=== PATIENT | female | born 1950 | race Caucasian/White ===

== ENCOUNTER 2017-06-15 10:16 | Observation (INO) | payer MEDICARE ==
[~2017-06-15] VITALS: Ht 165.1 cm; Wt 108.9 kg
[~2017-06-15 10:16] MED LIST: HCTZ25 MG PO; PEPCID AC20 MG PO; PLENDIL5 MG PO; PRILOSEC20 MG PO; PROZAC20 MG PO
[2017-06-15 11:40] LABS: BASOPHILS 0.3 % (0-2); EOSINOPHILS 1.7 % (0-7); HEMATOCRIT 42.3 % (36.0-48.0); HEMOGLOBIN 14.5 g/dL (12-16); IMMATURE GRANULOCYTES 0.2 % (0-5); LYMPHOCYTES 24.7 % (15-50); MCH 30.9 pg (26.0-34.0); MCHC 34.3 g/dL (31.0-37.0); MCV 90.2 fL (80.0-100.0); MEAN PLATELET VOLUME 9.1 fL (7.4-10.4); MONOCYTES 5.8 % (2-11); NEUTROPHILS 67.3 % (40-80); PLATELET COUNT 285 10x3/uL (130-400); RBC 4.69 10x6/uL (4.00-5.40); RDW 14.1 % (11.5-14.5); WBC 9.2 10x3/uL (4.8-10.8)
[2017-06-15 11:50] LABS: APTT 27.2 SECONDS (22.8-39.4)
[2017-06-15 11:55] LABS: ALBUMIN 3.1 g/dL (3.4-5.0); ALKALINE PHOSPHATASE 148 U/L (46-116); ALT (SGPT) 22 U/L (10-68); BILIRUBIN - TOTAL 0.38 mg/dL (0.2-1.3); CALC OSMOLALITY 271 mosm/kg (275-300); CALCIUM 8.9 mg/dL (8.5-10.1); CARBON DIOXIDE 32.9 mmol/L (21.0-32.0); CHLORIDE - SERUM 98 mmol/L (98-107); GLUCOSE 101 mg/dL (74-106); POTASSIUM - SERUM 3.1 mmol/L (3.5-5.1); PROTEIN - SERUM 7.2 g/dL (6.4-8.2); SODIUM 137 mmol/L (136-145); UREA NITROGEN 7 mg/dL (7-18); eGFR NON AFRICAN AMERICAN 58 mL/min (90-120)
[2017-06-15 12:06] LABS: CREATINE KINASE 120 UL (21-215); TROPONIN-I < 0.017 ng/mL (0.000-0.060)
[2017-06-15] MEDS ORDERED: COMBIVENT RESPIM4 GM INH (19:03)
[2017-06-15] MEDS ORDERED: FUROSEMIDE20 MG PO (19:03)
[2017-06-15] MEDS ORDERED: HYZAAR 100-25 T1 TAB PO (19:03)
[2017-06-15] MEDS ORDERED: HYZAAR 100-25 T1 TAB (19:05)
[2017-06-15] MEDS ORDERED: FUROSEMIDE20 MG (19:06)
[2017-06-15] MEDS ORDERED: COMBIVENT RESPIM4 GM (19:06)
--- NOTE | 2017-06-16 01:31 | NUR ---
HOOKED UP TO TELEMETRY. SINUS RHYTHM 77/min.
--- NOTE | 2017-06-16 01:40 | NUR ---
PT TO ROOM 1214 FROM ER VIA WHEELCHAIR.ASSESSMENT PER FLOW SHEET.SLIGHT WEAKNESS NOTED TO RIGHT UPPER AND LOWER BODY.PT IS ALAERT AND ORIENTED X4.FAMILY IS AT BEDSIDE CALL LIGHT USE INSTRUCTED AND IN REACH.
[2017-06-16 01:53] VITALS: BP 167/77; BMI 40.0
--- NOTE | 2017-06-16 04:45 | NUR ---
IV SITED TO LEFT HAND X1 STICK USING ASEPTIC TECH,20G.
[2017-06-16 05:24] LABS: BASOPHILS 0.3 % (0-2); EOSINOPHILS 2.8 % (0-7); HEMATOCRIT 41.7 % (36.0-48.0); HEMOGLOBIN 13.9 g/dL (12-16); IMMATURE GRANULOCYTES 0.2 % (0-5); LYMPHOCYTES 25.8 % (15-50); MCH 30.2 pg (26.0-34.0); MCHC 33.3 g/dL (31.0-37.0); MCV 90.7 fL (80.0-100.0); MEAN PLATELET VOLUME 9.4 fL (7.4-10.4); MONOCYTES 7.5 % (2-11); NEUTROPHILS 63.4 % (40-80); PLATELET COUNT 296 10x3/uL (130-400); RDW 13.9 % (11.5-14.5); WBC 8.7 10x3/uL (4.8-10.8)
--- NOTE | 2017-06-16 05:38 | NUR ---
REMAINS WITHOUT CHANGE.STATES HAND FEELS BETTER.REMAINS NPO FOR SWALLOW STUDY.WAITING ON IV PUMP TO START IVF.CONT PLAN OF CARE
[2017-06-16 05:53] LABS: CALC OSMOLALITY 273 mosm/kg (275-300); CALCIUM 8.7 mg/dL (8.5-10.1); CARBON DIOXIDE 31.4 mmol/L (21.0-32.0); CHLORIDE - SERUM 99 mmol/L (98-107); CHOL - HDL RATIO 4.6 ratio (2.3-4.1); CHOLESTEROL, TOTAL 171 mg/dL (0-200); GLUCOSE 92 mg/dL (74-106); HDL CHOLESTEROL 37 mg/dL (32-96); LDL CHOLESTEROL 113 mg/dL (0-100); LDL-HDL RATIO 3.1 ratio (1.5-3.5); SODIUM 138 mmol/L (136-145); TRIGLYCERIDE 108 mg/dL (30-200); UREA NITROGEN 7 mg/dL (7-18); eGFR NON AFRICAN AMERICAN 58 mL/min (90-120)
[2017-06-16 05:54] LABS: TROPONIN-I < 0.017 ng/mL (0.000-0.060)
[2017-06-16 07:03] LABS: ERYTHROCYTE SEDIMENTATION RATE 29 mm/hr (0-30)
--- NOTE | 2017-06-16 07:30 | NUR ---
AWAKE AND ALERT. ORIENTED X3. NO C/O THIS AM. NO DEFICITS NOTED. NEURO CHECKS WNL. LUNGS ARE CLEAR BILATERALLY, NO COUGH NOTED. SKIN IS INTACT WITHOUT REDNESS. IV TO LEFT HAND IS PATENT WITHOUT REDNESS. DENIES NEEDS. FAMILY AT BEDSIDE.
[2017-06-16 08:26] VITALS: BP 136/73
--- NOTE | 2017-06-16 10:30 | NUR ---
PASSED SPEECH EVAL. GIVEN REGULAR DIET. ATE ABOUT HALF OF SANDWICH.
[2017-06-16 10:31] VITALS: Ht 165.1 cm; Wt 108.9 kg
--- NOTE | 2017-06-16 12:45 | NUR ---
LUNCH TRAY SERVED IN ROOM. ATE OVER HALF OF TRAY. DENIES NEEDS. FAMILY AT BEDSIDE.
[2017-06-16] MEDS ORDERED: ASPIRIN325 MG PO (13:45)
--- NOTE | 2017-06-16 15:00 | NUR ---
DISCHARGE ORDERS RECEIVED. IV TO LEFT HAND D/C WITH CATHETER INTACT. WAITING ON FAMILY TO DISCHARGE HOME.
--- NOTE | 2017-06-16 16:21 | NUR ---
DISCHARGED TO HOME AMBULATORY WITH FAMILY. DISCHARGE INSTRUCTIONS GIVEN BOTH VERBALLY AND WRITTEN. ALL QUESTIONS ANSWERED. PATIENT AND FAMILY VERBALIZED UNDERSTANDING OF SAME. NO NEW PRESCRIPTIONS NEEDED.
--- NOTE | 2017-06-18 13:34 | EC ---
PATIENT:GUSTAVO RIVERA DATE OF SERVICE: 06/15/17 SEX: F MEDICAL RECORD: [id number] DATE OF : 46 LOCATION:[facility] AGE OF PATIENT: 66 ADMISSION DATE: 06/15/17 REFERRING PHYSICIAN: INTERPRETING PHYSICIAN: GARY VARGAS MD ECHOCARDIOGRAM REPORT ECHO CHARGES 4 ECHO COMPLETE CLINICAL DIAGNOSIS: CVA HX OF HTN ECHOCARDIOGRAPHIC MEASUREMENTS (adult normal given) AC root (d.<3.7cm) 3.8 cm LV Septum d (<1.2 cm> 1.1 cm Valve Excursion 2.1 cm LV Septum (systole) 1.2 cm Left Atria (s.<4.0cm> 3.0 cm LVPW d(<1.2cm) 1.3 cm RV (d.<2.3cm) 3.5 cm LVPW (sytole) 1.5 cm LV diastole(<5.6CM) 4.2 cm MV E-F(>70mm/sec) cm LV systole 3.1 cm LVOT Diameter 2.0 cm MV exc.(>10mm) cm Est.ejection fraction (50-75%) % Pericardial Effusion N DOPPLER: LVIT cm/sec A 120 cm/sec E 73.0 cm/sec LA cm/sec RVSP 19 mmHg LVOT 128 cm/sec AOP1/2T m/s Asc. Ao 156 cm/sec RVOT cm/sec RA cm/sec PA cm/sec AV Gradient Peak 9.73 mmHg AV Mean 5.73 mmHg AV Area 2.3 cm MV Gradient Peak 6.90 mmHg MV Mean 2.19 mmHg MV Area cm COMMENTS: Zigzag Elastic Attacher: Nya SHORT Circus Supervisor: 1 Dr. Vargas TAPE# PACS DATE OF SERVICE: 06/16/2017 Echocardiogram FINDINGS: 1. Left ventricular chamber size is within normal limits. Left ventricular systolic function is normal. Overall ejection fraction estimated at 60%. 2. Left atrium, right atrium, and right ventricle chamber sizes are within normal limits. 3. Valvular structures have normal structure and motion. ECHOCARDIOGRAM REPORT [id number] GUSTAVO RIVERA 4. Doppler interrogation reveals no significant valvular insufficiency or stenosis. 5. No evidence of pericardial effusion or left ventricular thrombus. 6. No cardiac source of neurologic emboli. TRANSINT:[id number] Voice Confirmation ID: [id number] DOCUMENT ID: [id number] GARY VARGAS MD at 1334 CC: [id number] DICTATION DATE: 06/16/17 1133 DRAPERY CUTTER: 06/16/17 1637 [facility] IN 06/16/17 [id number] [place] [address]
== END 2017-06-16 16:22 | disposition home or self-care (01) ==
LOC: D.ER 10:16 → D.WS 20:46 → OBSVTIME 20:52 → D.WS 06-16 16:22
PROVIDERS: Family Medicine; ADMIT Family Medicine
DX: I63.9 Cerebral infarction, unspecified (principal); R40.2412 Glasgow coma scale score 13-15, at arrival to emergency department; I10 Essential (primary) hypertension; J44.9 Chronic obstructive pulmonary disease, unspecified; Z72.0 Tobacco use

== ENCOUNTER 2017-08-18 05:39 | Day surgery (SDC) | payer MEDICARE ==
[~2017-08-18 05:39] MED LIST changes: +ASPIRIN325 MG PO; +BACLOFEN10 MG PO; +COMBIVENT RESPIM4 GM; +COMBIVENT RESPIM4 GM INH; +FUROSEMIDE20 MG; +FUROSEMIDE20 MG PO; +HYZAAR 100-25 T1 TAB; +HYZAAR 100-25 T1 TAB PO; +PRAVASTATIN SOD10 MG PO; +VITAMIN D250000 UNIT PO
[2017-08-18 06:48] VITALS: BMI 40.0
[2017-08-18 07:06] LABS: HEMATOCRIT 44.3 % (36.0-48.0); HEMOGLOBIN 14.9 g/dL (12-16); MCH 31.6 pg (26.0-34.0); MCHC 33.6 g/dL (31.0-37.0); MCV 94.1 fL (80.0-100.0); MEAN PLATELET VOLUME 9.4 fL (7.4-10.4); RBC 4.71 10x6/uL (4.00-5.40); WBC 11.4 10x3/uL (4.8-10.8)
[2017-08-18 07:22] LABS: CALCIUM 9.5 mg/dL (8.5-10.1); CARBON DIOXIDE 30.5 mmol/L (21.0-32.0); CREATININE - SERUM 1.2 mg/dL (0.6-1.3); POTASSIUM - SERUM 3.5 mmol/L (3.5-5.1)
--- NOTE | 2017-08-18 14:59 | NUR ---
1445-RECD FROM PACU. ALERT. TAKING ICE CHIPS. NO NAUSEA 1450-UP TO BATHROOM, VOIDS AND PASSES GAS.
--- NOTE | 2017-08-27 10:04 | HP ---
PATIENT: GUSTAVO RIVERA MEDICAL RECORD: [id number] ACCOUNT: [id number] LOCATION:BEL : 46 ADMISSION DATE: 08/18/17 HISTORY AND PHYSICAL EXAMINATION HISTORY OF PRESENT ILLNESS: The patient has a history of multiple colon polyps including a tubular adenoma at 35 cm. There is also a worrisome polyp, that was a 6 cm polyp, in the ascending colon, which had been tattooed. There are other benign-appearing polyps, which were removed as well. The patient is here for surveillance colonoscopy. The risks, possible complications and alternatives to the procedure were explained to the patient. She elects to proceed. ALLERGIES: NALTREXONE, BUPROPION AND LISINOPRIL. HOME MEDICATIONS: Aspirin, which she has been off of; Prilosec, losartan, hydrochlorothiazide and baclofen. SOCIAL HISTORY: She is a smoker, I have advised her to quit smoking. PAST MEDICAL AND SURGICAL HISTORY: TIA, hypertension, COPD, obesity and history of colon polyps. REVIEW OF SYSTEMS: Negative for diabetes or thyroid problems. Negative for renal disease or hepatitis. PHYSICAL EXAMINATION: GENERAL: The patient does not appear acutely ill. She does not appear chronically ill. VITAL SIGNS: Reviewed. HEAD: External ears appear normal. EYES: Extraocular movements are intact. NECK: Trachea is midline. NECK: Trachea is midline. CHEST: No intercostal retractions. PULMONARY: Mildly labored. No stridor. ABDOMEN: No peritonitis with cough. IMPRESSION: History of numerous complex colon polyps. PLAN: Colonoscopy and polypectomy utilizing argon plasma sheet metal superintendent. TRANSINT:[id number] Voice Confirmation ID: [id number] DOCUMENT ID: [id number] HISTORY AND PHYSICAL [id number] GUSTAVO RIVERA CARMELO BILL MD at 1004 CC: ADRY GOMEZ DO and BRUCE PENNINGTON MD [id number] DICTATION DATE: 08/18/17 1418 TRACK SURFACING MACHINE OPERATOR: 08/18/17 1458 [facility] 08/18/17 [id number] [place] [address]
--- NOTE | 2017-08-27 10:04 | OP ---
PATIENT NAME: GUSTAVO RIVERA MEDICAL RECORD: [id number] :46 LOCATION:D.OPS ADMISSION DATE: SURGEON: CARMELO BILL MD DATE OF OPERATION: 08/18/2017 PREOPERATIVE DIAGNOSES: History of multiple colon polyps including a worrisome polyp of the mid ascending colon, which was tattooed. POSTOPERATIVE DIAGNOSES: 1. History of multiple colon polyps including a worrisome polyp of the mid ascending colon, which was tattooed, with some regrowth of the ascending colon polyp. 2. Fifteen other diminutive polyps throughout the large bowel. PROCEDURES: 1. Total colonoscopy to cecum. 2. Cold endoscopic biopsies of the ascending colon polyp and then ablation utilizing the argon plasma fourth grade teacher with the right colon setting in the forced mode. 3. Ablation of 15 diminutive polyps with the argon plasma fourth grade teacher. SURGEON: Carmelo Bill MD NAVY FIGHTER PILOT: None. BLOOD LOSS: Minimal. ANESTHESIA: General. COMPLICATIONS: None. The risks, possible complications, and alternatives to the procedure were explained to the patient. She elects to proceed. OPERATIVE COURSE: The patient was conveyed to the operating room electively on 08/18/2017. General anesthesia was induced by the anesthesia staff. The patient was placed in the Ivy position. A digital rectal examination was performed. A colonoscope was inserted through the anus. It was easily advanced to the cecum. Upon withdrawal, I irrigated and aspirated extensively. A combination of direct imaging as well as narrow band imaging were utilized. The mid ascending colon polyp was easily identifiable. Multiple cold endoscopic biopsies were performed. I then ablated the polypoid base with the argon plasma fourth grade teacher. The pullback was greater than 25-minute pullback. The prep was adequate. I dragged the folds. I identified 15 other diminutive polyps which did not appear worrisome; and rather than biopsying them, I elected to just ablate them with the argon plasma fourth grade teacher. A retroflexed view was obtained in the rectum. I then unretroflexed the scope and removed it under direct vision. I will plan to see the patient in my office in 2-3 weeks to review the results of the biopsies. I will plan for her next colonoscopy to be in the GI lab without the use of the argon plasma fourth grade teacher. TRANSINT:[id number] Voice Confirmation ID: [id number] DOCUMENT ID: [id number] OPERATIVE REPORT [id number] GUSTAVO RIVERA ROBERT MD at 1004 CC: ADRY GOMEZ DO and BRUCE PENNINGTON MD [id number] DICTATION DATE: 08/18/171421 POOLING OPERATOR: 08/18/17 1451 [facility] 08/18/17 [id number] [place] [id number]
== END 2017-08-18 15:50 | disposition home or self-care (01) ==
LOC: D.OPS 05:39 → D.PAN 08:00 → D.OPS 15:50 → D.PAN 08-19 08:00
PROVIDERS: Anesthesiology
DX: Z12.11 Encounter for screening for malignant neoplasm of colon (principal); D12.2 Benign neoplasm of ascending colon; K63.5 Polyp of colon; K62.1 Rectal polyp; Z86.73 Personal history of transient ischemic attack (TIA), and cerebral infarction without residual deficits; I10 Essential (primary) hypertension; J44.9 Chronic obstructive pulmonary disease, unspecified; F17.200 Nicotine dependence, unspecified, uncomplicated; E66.9 Obesity, unspecified; Z88.8 Allergy status to other drugs, medicaments and biological substances; Z79.82 Long term (current) use of aspirin; Z79.899 Other long term (current) drug therapy; Z01.812 Encounter for preprocedural laboratory examination; Z68.41 Body mass index [BMI] 40.0-44.9, adult

== ENCOUNTER → 2017-12-29 17:17 | Outpatient (CLI) | payer MEDICARE | END | disposition home or self-care (01) | LOC: D.MAMMO 10-19 10:00 | DX: Z12.31 Encounter for screening mammogram for malignant neoplasm of breast (principal) ==

== ENCOUNTER → 2018-01-18 09:33 | Outpatient (CLI) | payer MEDICARE | END | disposition home or self-care (01) | LOC: D.CT 09:33 | DX: R10.9 Unspecified abdominal pain (principal) ==

== ENCOUNTER → 2018-07-11 07:17 | Outpatient (CLI) | payer MEDICARE ==
[2018-07-11 07:54] LABS: BILIRUBIN - DIRECT 0.08 mg/dL (0.00-0.30); BILIRUBIN - INDIRECT 0.27 mg/dL (0.00-1.00); BILIRUBIN - TOTAL 0.35 mg/dL (0.2-1.3); PROTEIN - SERUM 7.5 g/dL (6.4-8.2)
== END | disposition home or self-care (01) ==
LOC: D.US 07:17
PROVIDERS: Internal Medicine Gastroenterology
DX: K76.0 Fatty (change of) liver, not elsewhere classified (principal)

== ENCOUNTER → 2018-08-19 07:41 | Outpatient (CLI) | payer MEDICARE | END | disposition home or self-care (01) | LOC: D.NM 07:41 | DX: R10.11 Right upper quadrant pain (principal) ==

== ENCOUNTER 2018-10-21 06:45 | Day surgery (SDC) | payer MEDICARE ==
[2018-10-20 11:27] LABS: HEMATOCRIT 41.8 % (36.0-48.0); HEMOGLOBIN 14.3 g/dL (12-16); MCH 30.8 pg (26.0-34.0); MCHC 34.2 g/dL (31.0-37.0); MCV 89.9 fL (80.0-100.0); MEAN PLATELET VOLUME 9.3 fL (7.4-10.4); RBC 4.65 10x6/uL (4.00-5.40); RDW 13.8 % (11.5-14.5); WBC 8.6 10x3/uL (4.8-10.8)
[~2018-10-21] VITALS: Ht 165.1 cm; Wt 108.9 kg
[~2018-10-21 06:45] MED LIST changes: +ANORO ELLIPTA1 EACH INH; +METOPROLOL TART25 MG PO; +RANITIDINE HCL150 M1 PO; +VITAMIN B-12500 MC1 PO
[2018-10-21] MEDS ORDERED: KLOR-CON 1010 MEQ PO (08:19)
[2018-10-21 08:24] VITALS: BP 140/77; Ht 165.1 cm; Wt 108.9 kg
--- NOTE | 2018-10-21 16:20 | OP ---
PATIENT NAME: GUSTAVO RIVERA MEDICAL RECORD: [id number] :48 LOCATION:D.OPS ADMISSION DATE: SURGEON: CARMELO BILL MD DATE OF OPERATION: 10/21/2018 PREOPERATIVE DIAGNOSES: 1. Biliary dyskinesia. 2. Hepatic steatosis. POSTOPERATIVE DIAGNOSES: 1. Biliary dyskinesia. 2. Symptomatic gallstones. 3. Hepatic steatosis. 4. Hepatomegaly. PROCEDURES: 1. Laparoscopic cholecystectomy. 2. Intraoperative cholangiography without immediate surgeon interpretation. 3. 14-gauge core biopsies of the liver. SURGEON: Carmelo Bill MD TRIM OPERATOR: None. BLOOD LOSS: Minimal. ANESTHESIA: General. COMPLICATIONS: None. The risks, possible complications, and alternatives to the procedure were explained to the patient. She elects to proceed. The discussion specifically included, but was not limited to, bleeding requiring emergency reoperation, infection, intestinal injury, common bile duct injury. OPERATIVE COURSE: The patient was conveyed to the operating room electively on 10/21/2018. General anesthesia was induced by the anesthesia staff. The abdomen was sterilely prepped and draped. An incision was accomplished in the left upper quadrant. Through the incision, a Veress needle was inserted. CO2 insufflation was begun. Once a sufficient pneumoperitoneum had been achieved, a 5-mm trocar was inserted in the left upper quadrant. Under direct internal vision utilizing a television camera, a 5-mm trocar was inserted in the epigastrium. Another 5-mm trocar was inserted far laterally in the right upper quadrant. Also, a 12-mm trocar was inserted through an incision at the umbilicus. During insertion of the Veress needle and all trocars, there appeared to have been no injury to the bowels, any intraperitoneal or retroperitoneal structures. An abdominal survey was undertaken. There were some adhesions in the right upper quadrant and these were taken down with the electrocautery. Under laparoscopic guidance, I then percutaneously accessed the right upper quadrant utilizing a 14-guage core biopsy device. Cores of the liver were obtained over the convexity of the liver. The biopsy sites were then made hemostatic with electrocautery. OPERATIVE REPORT [id number] GUSTAVO RIVERA I then advanced a cholangiogram trocar. I punctured the fundus of the gallbladder. I aspirated bile. I injected dye. Real-time cholangiographic images were obtained and were sent to the radiologist for interpretation. The radiologist called back and stated that he saw no common bile duct stones. Cholangiogram trocar was removed. The gallbladder was retracted cephalad. The infundibulum was retracted laterally. Blunt dissection was begun in the triangle of Calot. One cystic artery and one cystic duct were identified. These were clipped multiply and divided between clips. The gallbladder was then excised from its bed in the liver. It was placed within a bag retrieval device and was withdrawn through the umbilical fascia defect. The 12-mm trocar was replaced and the abdomen reinsufflated. I irrigated and aspirated the right upper quadrant. There was no bleeding even at low pressure of 8. The Tolu-Jane suture closure device and 0 Vicryl sutures were used to close the fascia at the umbilicus. The trocars were removed. The skin at the umbilicus was closed with interrupted 4-0 Vicryl Rapide sutures. The other skin incisions were closed with interrupted intracuticular 3-0 Vicryls. Benzoin and Steri-Strips were applied. The patient was then extubated and conveyed to the post-anesthesia care unit, where she was in stable condition. I plan to see her in the office in 2-3 weeks. She will be dismissed home on [place] as well as [place]. TRANSINT:[id number] Voice Confirmation ID: [id number] DOCUMENT ID: [id number] CARMELO BILL MD at 1620 CC: JEREMY AGUERO MD [id number] DICTATION DATE: 10/21/18 1322 SALES ADVISORY MANAGER: 10/21/18 1417 [facility] [address] [id number]
== END 2018-10-21 17:15 | disposition home or self-care (01) ==
LOC: D.OPS 06:45 → D.PAN 09:30 → D.OPS 09:30 → D.PAN 10:30 → D.OPS 17:15
PROVIDERS: Anesthesiology
DX: K82.8 Other specified diseases of gallbladder (principal); K76.0 Fatty (change of) liver, not elsewhere classified; K80.80 Other cholelithiasis without obstruction

== ENCOUNTER 2019-02-28 06:24 | Day surgery (SDC) | payer MEDICARE ==
[~2019-02-28] VITALS: Ht 160 cm; Wt 105.2 kg
[~2019-02-28 06:24] MED LIST changes: +KLOR-CON 1010 MEQ PO
[2019-02-28 06:55] LABS: ANION GAP 11.7 mmol/L (8-16); CALCIUM 9.1 mg/dL (8.5-10.1); CARBON DIOXIDE 28.5 mmol/L (21.0-32.0); CREATININE - SERUM 1.1 mg/dL (0.6-1.3); POTASSIUM - SERUM 3.2 mmol/L (3.5-5.1)
[2019-02-28 06:56] LABS: BASOPHILS 0.5 % (0-2); EOSINOPHILS 3.2 % (0-7); HEMOGLOBIN 15.3 g/dL (12-16); IMMATURE GRANULOCYTES 0.2 % (0-5); LYMPHOCYTES 25.9 % (15-50); MCH 31.4 pg (26.0-34.0); MCHC 34.8 g/dL (31.0-37.0); MCV 90.3 fL (80.0-100.0); MEAN PLATELET VOLUME 9.3 fL (7.4-10.4); MONOCYTES 5.7 % (2-11); NEUTROPHILS 64.5 % (40-80); PLATELET COUNT 296 10x3/uL (130-400); RBC 4.87 10x6/uL (4.00-5.40); RDW 14.1 % (11.5-14.5); WBC 8.5 10x3/uL (4.8-10.8)
[2019-02-28] MEDS ORDERED: BUPROPION XL150 MG PO (07:21)
[2019-02-28 07:23] VITALS: Ht 160 cm; Wt 105.2 kg
--- NOTE | 2019-03-01 18:45 | OP ---
PATIENT NAME: GUSTAVO RIVERA MEDICAL RECORD: [id number] :46 LOCATION:D.OPS ADMISSION DATE: SURGEON: CARMELO BILL MD DATE OF OPERATION: 02/28/2019 PREOPERATIVE DIAGNOSIS: History of numerous colon polyps. POSTOPERATIVE DIAGNOSES: 1. Regrowth of ascending colon polyp, which was tattooed. The regrowth is 2.5 cm and lies on a fold. 2. Secondary sessile polyp at 35 cm, which was an 8 mm x 9 mm polyp. 3. Trivial polyps, which were ablated. PROCEDURES: 1. Total colonoscopy to cecum. 2. Hot biopsy forceps polypectomy times 1. 3. Cold endoscopic biopsies of the ascending colon polyp and then ablation of the residual polypoid tissue with the argon plasma sheet rock sander utilizing the right colon setting in the forced mode. 4. Ablation of 15 minor sessile polyps, best seen with narrow band imaging. SURGEON: Carmelo Bill MD MANAGER CARDIAC CATH: None. BLOOD LOSS: Minimal. ANESTHESIA: IV sedation. COMPLICATIONS: None. The risks, possible complications and alternatives to the procedure were explained to the patient. She elects to proceed. ENDOSCOPIC COURSE: The patient was conveyed to the endoscopy suite electively on 02/28/2019. The patient was placed in the Ivy position. A digital rectal examination was performed. A colonoscope was inserted through the anus. It was easily advanced to the cecum. The prep was adequate. I slowly withdrew the endoscope. I noted the tattoo. Across from the tattoo, on a fold, there had been significant regrowth of a polyp. Cold endoscopic biopsies were performed. I then ablated the remaining polypoid tissue with the argon plasma sheet rock sander. I then continued to withdraw the endoscope. Normal imaging and narrow band imaging was utilized. The pullback was greater than an 18-minute pullback. Another small polyp was noted and was removed utilizing the hot biopsy forceps polypectomy technique. A number of other trivial polyps were noted and these were ablated with the argon plasma sheet rock sander as well. A retroflexed view was obtained in the rectum, I then unretroflexed the scope and removed it under direct vision. I will see the patient in my office in 3 weeks. I will plan for her next colonoscopy to take place in 3 years. TRANSINT:[id number] Voice Confirmation ID: [id number] DOCUMENT ID: [id number] OPERATIVE REPORT [id number] GUSTAVO RIVERA ROBERT MD at 1845 CC: ADRY GOMEZ and BRUCE PENNINGTON [id number] DICTATION DATE: 02/28/19 1113 PROBATION SUPERVISOR: 02/28/19 1200 [facility] 02/28/19 [id number] [place] [id number]
--- NOTE | 2019-03-01 18:58 | HP ---
PATIENT: GUSTAVO RIVERA MEDICAL RECORD: [id number] ACCOUNT: [id number] LOCATION:BEL : 46 ADMISSION DATE: 02/28/19 PCP: ADRY GOMEZ DO HISTORY AND PHYSICAL EXAMINATION HISTORY OF PRESENT ILLNESS: The patient has history of multiple colon polyps including a tubular adenoma at 35 cm. There is also worrisome polyp that was a 6-cm polyp in the ascending colon, which has been tattooed as well. The patient is here for surveillance colonoscopy. ALLERGIES: LISINOPRIL WELL CONTRAVE. PAST MEDICAL AND SURGICAL HISTORY: Please see the nursing list. Hypertension, gastroesophageal reflux, history of cholecystectomy, history of colonoscopy, history of colon polyps, history of TIA. SOCIAL HISTORY: The patient is a smoker. PHYSICAL EXAMINATION: GENERAL: The patient does not appear acutely ill. She does not appear chronically ill. VITAL SIGNS: Reviewed. EARS: External ears appear normal. EYES: Extraocular movements are intact. NECK: Trachea is midline. CHEST: No intercostal retractions. PULMONARY: Nonlabored. No stridor. IMPRESSION: History of multiple colon polyps, which have been complex polyps. PLAN: Colonoscopy and biopsies, possible polypectomy, possible endoscopic mucosal resection. TRANSINT:[id number] Voice Confirmation ID: [id number] DOCUMENT ID: [id number] CARMELO BILL MD at 1857 CC: ADRY GOMEZ and BRUCE PENNINGTON [id number] DICTATION DATE: 02/28/19 1009 MACHINE PECAN GATHERER: 02/28/19 1054 [facility] 02/28/19 [id number] [place] [address]
== END 2019-02-28 12:35 | disposition home or self-care (01) ==
LOC: D.OPS 06:24
PROVIDERS: Anesthesiology; ATTEND Surgery
DX: D12.5 Benign neoplasm of sigmoid colon (principal); D12.2 Benign neoplasm of ascending colon; Z01.812 Encounter for preprocedural laboratory examination

== ENCOUNTER → 2019-08-10 08:45 | Outpatient (CLI) | payer MEDICARE ==
[2019-02-28 07:23] VITALS: BMI 41.1
[~2019-08-10 08:45] MED LIST changes: +BUPROPION XL150 MG PO
[2019-08-10 09:59] LABS: ALBUMIN 3.3 g/dL (3.4-5.0); BILIRUBIN - DIRECT 0.1 mg/dL (0.00-0.30); BILIRUBIN - INDIRECT 0.26 mg/dL (0.00-1.00); BILIRUBIN - TOTAL 0.36 mg/dL (0.2-1.3); PROTEIN - SERUM 7.1 g/dL (6.4-8.2)
== END | disposition home or self-care (01) ==
LOC: D.US 08:45
PROVIDERS: ATTEND Internal Medicine Gastroenterology
DX: K76.0 Fatty (change of) liver, not elsewhere classified (principal)

== ENCOUNTER → 2019-08-17 14:59 | Outpatient (CLI) | payer MEDICARE ==
[2019-02-28 07:23] VITALS: BMI 41.1
[2019-08-18 11:10] LABS: HEPATITIS C ANTIBODY <0.1 (0.0-0.9)
[2019-08-19 18:08] LABS: MITOCHONDRIAL ANTIBODY <20.0 Units (0.0-20.0); SMOOTH MUSCLE ABS (ACTIN) 12 Units (0-19)
[2019-08-22 14:09] LABS: ANA REFLEX - DIRECT Negative (Negative)
== END | disposition home or self-care (01) ==
LOC: D.LAB 14:59
PROVIDERS: ATTEND Internal Medicine Gastroenterology
DX: Z00.01 Encounter for general adult medical examination with abnormal findings (principal)

== ENCOUNTER 2019-11-07 18:30 | Outpatient (CLI) | payer MEDICARE ==
[2019-02-28 07:23] VITALS: BMI 41.1
== END 2019-11-07 23:59 | disposition home or self-care (01) ==
LOC: D.MAMMO 18:30
PROVIDERS: ATTEND Family Medicine
DX: Z12.31 Encounter for screening mammogram for malignant neoplasm of breast (principal)

== ENCOUNTER → 2020-03-06 11:18 | Outpatient (CLI) | payer MEDICARE ==
[2019-02-28 07:23] VITALS: BMI 41.1
[2020-03-06 12:41] LABS: ALBUMIN 3.4 g/dL (3.4-5.0); BILIRUBIN - DIRECT 0.13 mg/dL (0.00-0.30); BILIRUBIN - INDIRECT 0.37 mg/dL (0.00-1.00); BILIRUBIN - TOTAL 0.5 mg/dL (0.2-1.3); PROTEIN - SERUM 7.3 g/dL (6.4-8.2)
== END | disposition home or self-care (01) ==
LOC: D.US 02-09 08:30
PROVIDERS: ATTEND Internal Medicine Gastroenterology
DX: K76.0 Fatty (change of) liver, not elsewhere classified (principal)

== ENCOUNTER 2020-07-11 19:53 | Emergency (ER) | payer MEDICARE ==
[~2020-07-11] VITALS: Ht 160 cm; Wt 108.0 kg
[2020-07-11 20:17] VITALS: Ht 160 cm; Wt 108.0 kg
[2020-07-11 20:41] LABS: BASOPHILS 0.3 % (0-2); EOSINOPHILS 1.2 % (0-7); HEMATOCRIT 44.1 % (36.0-48.0); IMMATURE GRANULOCYTES 0.3 % (0-5); LYMPHOCYTES 14.6 % (15-50); MCH 31.1 pg (26.0-34.0); MCV 91.5 fL (80.0-100.0); MEAN PLATELET VOLUME 9.1 fL (7.4-10.4); MONOCYTES 6.6 % (2-11); PLATELET COUNT 320 10x3/uL (130-400); RBC 4.82 10x6/uL (4.00-5.40); WBC 14.2 10x3/uL (4.8-10.8)
[2020-07-11 21:08] LABS: ALBUMIN 3.5 g/dL (3.4-5.0); ALKALINE PHOSPHATASE 150 U/L (30-120); ALT (SGPT) 19 U/L (10-68); CALC OSMOLALITY 267 mosm/kg (275-300); CALCIUM 9.2 mg/dL (8.5-10.1); CARBON DIOXIDE 28.9 mmol/L (21.0-32.0); CHLORIDE - SERUM 97 mmol/L (98-107); CREATINE KINASE 159 UL (21-215); CREATININE - SERUM 1.4 mg/dL (0.6-1.3); GLUCOSE 118 mg/dL (74-106); LIPASE 202 U/L (73-393); MAGNESIUM - SERUM 1.8 mg/dL (1.8-2.4); PRO BNP 104 pg/mL (0-125); PROTEIN - SERUM 7.7 g/dL (6.4-8.2); SODIUM 134 mmol/L (136-145); THYROID STIMULATING HORMONE 2.58 uIU/mL (0.36-3.74); UREA NITROGEN 11 mg/dL (7-18); eGFR NON AFRICAN AMERICAN 39 mL/min (90-120)
[2020-07-11 21:09] LABS: POTASSIUM - SERUM 2.8 mmol/L (3.5-5.1); TROPONIN-I < 0.017 ng/mL (0.000-0.060)
[2020-07-11 22:48] VITALS: BP 145/76
== END 2020-07-11 22:42 | disposition home or self-care (01) ==
LOC: D.ER 19:53
PROVIDERS: Family Medicine
DX: R55 Syncope and collapse (principal); R07.9 Chest pain, unspecified; I10 Essential (primary) hypertension; R11.0 Nausea; E87.6 Hypokalemia; Z86.73 Personal history of transient ischemic attack (TIA), and cerebral infarction without residual deficits; J44.9 Chronic obstructive pulmonary disease, unspecified; K21.9 Gastro-esophageal reflux disease without esophagitis